=== PATIENT | male | born 1980 | race Caucasian/White ===

== ENCOUNTER 2024-11-18 12:51 | Emergency (ER) | payer BC, SELFPAY ==
[2024-11-18 12:56] VITALS: BP 177/102; PULSE 91; RESP 20; TEMP 36.7; O2SAT 97
--- NOTE | 2024-11-18 12:56 | ED_ITS ---
HPI - URI/Sore Throat General Chief Complaint: Upper Respiratory Infection Stated Complaint: cough/chest congestion Time Seen by Provider: 11/18/24 13:00 Source: patient, RN notes reviewed and old records reviewed Mode of arrival: ambulatory Limitations: no limitations History of Present Illness HPI Narrative: 44 year old male presents to express care with complaints of cough, chest congestion,noted wheezing sometimes at night when supine, nasal congestion and drainage,facial pressure for the past 2 weeks duration. Patient reports that he has been taking Mucinex DM, Theraflu cold and Flu, and Ibuprofen for his symptoms. Patient reports that he is expectorating yellow phlegm and also is blowing yellow mucous from his nose with sinus pressure. Patient reports no known fevers, chills, or sweats, or body aches. MD elicited complaint: cough, rhinorrhea and nasal congestion Pertinent past history: other (tobacco use) Onset (ago): week(s) (2) Consistency: constant Severity: moderate Description of mucous: yellow Able to tolerate fluids by mouth: Yes Treatments prior to arrival: other (Theraflu, Mucinex DM,Ibuprofen) Related Data Allergies Allergy/AdvReac Type Severity Reaction Status Date / Time No Known Allergies Allergy Unverified 11/18/24 13:02 Review of Systems Review of Systems: CONSTITUTIONAL: Reports malaise, no chills, sweats, or fever. EYES: Denies visual changes, redness, or discharge. ENT: Reports rhinorrhea, congestion, sinus pain,no otalgia and no sore throat. CARDIOVASCULAR: Denies chest pain, palpitations, or edema. RESPIRATORY: Reports cough and some wheezing at night when supine.? Denies dyspnea. GASTROINTESTINAL: Denies abdominal pain, nausea, vomiting, diarrhea SKIN: Denies rash or itching. MUSCULOSKELETAL: Denies myalgia. NEUROLOGIC: Denies headache. All systems reviewed & are unremarkable except as noted in HPI and below [facility] Social History Social History (Updated 11/18/24 @ 13:42 by Claudia Jaramillo NP) Smoking packs per day: 0.5 Smoking cigarettes per day: 10.0 Smoking status: Current every day smoker Tobacco type: cigarettes Alcohol intake: current Alcohol use details: social Substance use type: does not use Living arrangements: with family Gender identity (if verbalized by the patient): Male Comments At time of signature, agree with nursing past medical, surgical, social and family history. There is no relevant family history pertinent to the presenting complaint Exam Narrative: GENERAL: Well-appearing, well-nourished, and in no acute distress. HEAD: Normocephalic EYES: PERRLA, conjunctivae clear ENT: Nares clear, turbinates edematous and erythematous, yellow discharge facial sinus pressure. Mucous membranes moist. TM pearly nunez with dull light reflex bilaterally; no tragal tenderness. Oropharynx erythematous without lesions. Tonsils red mildly enlarged and without exudate, no drooling, no hoarseness, no trismus, uvula midline.post nasal drainage NECK: Supple. No lymphadenopathy CHEST: scattered wheezes upper anterior lobes to auscultation, breath sounds equal.+ wheezing,no rhonchi, rales, or stridor. No respiratory distress, speaks in full sentences cough productive of yellow phlegm SAO2 97% on room air. HEART: Regular rate and rhythm. No murmur heard. SKIN: Warm, dry, no rash. NEURO: Alert and oriented x3. PSYCH: Normal mood and affect Course Course Emergency Course: Patient is aware of diagnosis, understands and agrees to treatment plan.? Anticipatory guidance given.? Patient agrees to follow-up as directed and is aware of reasons to seek care at the emergency department. Portions of this record may have been created with voice recognition software Level of Care: Express Care Visit Vital Signs Vital signs: Vital Signs Temperature 36.7 C 11/18/24 12:56 Pulse Rate 91 11/18/24 12:56 Respiratory Rate 20 11/18/24 12:56 Blood Pressure 177/102 H 11/18/24 12:56 Pulse Oximetry 97 11/18/24 12:56 Oxygen Delivery Room Air 11/18/24 12:56 Temperature 36.7 C 11/18/24 12:56 Pulse Rate 91 11/18/24 12:56 Respiratory Rate 20 11/18/24 12:56 Blood Pressure 177/102 H 11/18/24 12:56 Pulse Oximetry 97 11/18/24 12:56 Oxygen Delivery Room Air 11/18/24 12:56 Reviewed MDM - URI/Sore Throat MDM Narrative Medical decision making narrative: Differential diagnosis considered: Pink virus, strep pharyngitis, allergic rhinitis, upper respiratory tract infection, sinusitis, rhinosinusitis, nasopharyngitis. viral pharyngitis, otitis media, otitis externa, pneumonia, bronchitis, viral cough syndrome, viral syndrome, and influenza.? Exam findings show no acute concerns or changes; patient is non-toxic appearing and is in no distress.? Patient is appropriate for outpatient treatment and follow-up. Differential Diagnosis Differential diagnosis: Likely upper respiratory infection, sinusitis, bronchitis and other (acute cough) Medical Records Attestation: I reviewed the patient's medical records. Lab Data Attestation: I reviewed the patient's lab results. Critical Care Time Critical Care Time Critical Care Time: No Discharge Plan Discharge Clinical Impression: Bronchitis Sinusitis Qualifiers: Sinusitis location: pansinusitis Chronicity: acute Recurrence: non-recurrent Qualified Code(s): J01.40 - Acute pansinusitis, unspecified Patient Disposition: Home, Self-Care Condition: Stable Instructions: Antibiotic Form, Acute Bronchitis (ED), Rhinosinusitis (ED) Additional Instructions: Increase fluids especially juices and water [id number] cough and cold medicine of your choice for your symptoms Recommend Delsym or Robitussin cough syrup Zyrtec,Claritin or Gertrudis daily and include Coricidin decongestant Mucinex continue as needed Continue your inhaler/nebulizer as directed Steroids as directed--take with food heat to the face 20-30 minutes 4-6 times a day for pain Salt water gargles, throat lozenges or throat sprays as desired Antibiotic as directed--finished the medication If your symptoms persist, change or worsen significantly before you can contact your personal physician then please, without delay, go to the emergency department for further evaluation. Follow-up with PCP in 7-10 days or sooner if needed Follow up with PCP soon in regards to your blood pressure which is elevated above threshold for referral. Blood pressure above 120/80 may indicate pre- hypertension. 177/102, blood pressure manual reading 160/100 Patient Language: Czech Prescriptions: New albuterol sulfate [Ventolin HFA] 90 mcg/actuation HFA aerosol inhaler 2 puff inhalation QID PRN (Reason: shortness of breath or wheezing) Qty: 8.5 0RF Rx Instructions: whatever is covered on insurance plan prednisone 20 mg tablet 40 mg PO DAILY 5 Days Qty: 10 0RF Rx Instructions: take with food amoxicillin-pot clavulanate 875-125 mg tablet 1 tablet PO Q12H Qty: 20 0RF Rx Instructions: take all doses recommend taking probiotic while taking this antibiotic or eating Activa yogurt Follow-up/Referrals: Dorothea,Kayden Cao MD [Primary Care Provider] - Stand Alone Forms: Work/School Release IP Time of Disposition: 13:19 Quality Katelynn Coma Scale Eyes: Open Verbal: Oriented and Alert Motor: Follows Commands Katelynn Coma Total Score: 15
--- OUTSIDE RECORDS SUMMARY | 2024-11-18 14:33 | XMS_ITS | Clinical Summary ---
Author Organization [facility] perial Address [address] [place] [address] Phone Care Team Providers Care Piano Refinisher Name Role Phone Unavailable Primary Care Provider Unavailabl e Allergies No known active allergies Medications betamethasone, augmented (DIPROLENE-AF) 0.05 % Ointment 6 Active albuterol HFA 90 mcg inhalerIndicati ons:URI, acute Take 2 Puffs by inhalation every 4 hours as needed for Shortness of Breath or Wheezing. 8.5 Gram 0 6 Active benzonatate (TESSALON) 200 mg capsuleIndicati ons:URI, acute Take 1 Capsule (200 mg) by mouth 3 times daily as needed for Cough. 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 Gender Identity Not on file Sexual Orientation Not on file Last Filed Vital Signs Vital Sign Reading Time Taken Comments Blood Pressure 137/83 11/03/2015 11:00 AM ARTIFICIAL INTELLIGENCE SPECIALIST Pulse 83 11/03/2015 11:00 AM ARTIFICIAL INTELLIGENCE SPECIALIST Temperature 36.7 C (98 F) 11/03/2015 11:00 AM ARTIFICIAL INTELLIGENCE SPECIALIST Respiratory Rate 20 11/03/2015 11:00 AM ARTIFICIAL INTELLIGENCE SPECIALIST Oxygen Saturation 94% 11/03/2015 11:00 AM ARTIFICIAL INTELLIGENCE SPECIALIST Inhaled Oxygen Concentration - - Weight 117.5 kg (259 lb) 11/03/2015 11:00 AM ARTIFICIAL INTELLIGENCE SPECIALIST Height 182.9 cm (6') 11/03/2015 11:00 AM ARTIFICIAL INTELLIGENCE SPECIALIST Body Mass Index 35.13 11/03/2015 11:00 AM ARTIFICIAL INTELLIGENCE SPECIALIST Plan of Treatment Health Maintenance Due Date Last Done Comments DTAP/TDAP/TD VACCINES (1 - Tdap) 1999 HEPATITIS B VACCINES (1 of 3 - 19+ 3-dose series) 1999 PNEUMOCOCCAL VACCINE 0-49 YE ARS (1 of 2 - PCV) 1999 INFLUENZA VACCINE (#1) 2024 HPV VACCINES Aged Out No longer eligi ble based on patient's age to complete this topic Insurance Patient Home Monitoring/TRUE [employer] PPO
--- OUTSIDE RECORDS SUMMARY | 2024-11-18 14:33 | XMS_ITS | Encounter Summary ---
Author Organization [facility] Address [address] [place] [address] Care Team Providers Care Rfid Developer Name Role Phone Unavailable Primary Care Provider Unavailabl e Encounter Details Date Type Department Care Team (Late st Contact Info) Description 03/30/2005 Outpatient Historical [facility] [address] [facility] [address] [place] [phone] Rahat Rodas MD [address] 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
--- OUTSIDE RECORDS SUMMARY | 2024-11-18 14:33 | XMS_ITS | Encounter Summary ---
Author Organization [facility] Address [address] [place] [address] Care Team Providers Care Barrel Plater Name Role Phone Unavailable Primary Care Provider Unavailabl e Encounter Details Date Type Department Care Team (Late st Contact Info) Description 04/08/2005 Outpatient Historical [facility] [address] [facility] [address] [facility] [place] [address] Kayden Solorzano MD [address] 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
--- OUTSIDE RECORDS SUMMARY | 2024-11-18 14:33 | XMS_ITS | Clinical Summary ---
Author Organization [facility] Address [address] [place] [address] Care Team Providers Care Automobile Locator Name Role Phone None, Provider MD Primary Care Provider Unavaila ble Allergies No known active allergies Immunizations Name Administration Dates Next Due Tdap (Boostrix) 07/28/2021 Social History Tobacco Use Types Packs/Day Years Used Date Smoking Tobacco: Every Day Cigarettes Smokeless Tobacco: Never Alcohol Use Standard Drinks/Week Comments Yes 0 (1 standard drink = 0.6 oz pur e alcohol) occasional Sex and Gender Information Value Date Recorded Sex Assigned at Not on file Legal Sex Male 8:09 PM CDT Gender Identity Not on file Sexual Orientation Not on file Last Filed Vital Signs Vital Sign Reading Time Taken Comments Blood Pressure 143/110 07/28/2021 11:30 AM BIKE ASSEMBLER Pulse 86 07/28/2021 11:30 AM BIKE ASSEMBLER Temperature 36.3 C (97.4 F) 07/28/2021 11:30 AM BIKE ASSEMBLER Respiratory Rate 18 07/28/2021 11:30 AM BIKE ASSEMBLER Oxygen Saturation 99% 07/28/2021 11:30 AM BIKE ASSEMBLER Inhaled Oxygen Concentration - - Weight 113.4 kg (250 lb) 07/28/2021 11:22 AM BIKE ASSEMBLER Height 182.9 cm (6') 07/28/2021 11:22 AM BIKE ASSEMBLER Body Mass Index 33.91 07/28/2021 11:22 AM BIKE ASSEMBLER Plan of Treatment Health Maintenance Due Date Last Done Comments Annual Physical 1983 Pneumococcal Vaccine: Pediatrics (0 to 5 Years) and At-Risk Patients (6 to 64 Years) (1 of 2 - PCV) 1986 Hepatitis B Vaccines (2 of 3 - 3-dose series) 08/08/1996 07/11/1996 Hepatitis C 1998 COVID-19 Vaccine ( season) 2024 07/08/2021 Influenza Adult (#1) 2024 06/01/2020, 06/11/20 19 DTaP, Tdap and Td Vaccines (7 - Td or Tdap) 07/28/2031 07/28/2021, 04/22/1994, 04/24/1985, Additional history exists HPV Vaccines Aged Out No longer eligi ble based on patient's age to complete this topic Meningococcal B Vaccine Aged Out No l onger eligible based on patient's age to complete this topic Meningococcal Vaccine Aged Out No katie jyothi eligible based on patient's age to complete this topic RSV Immunizations Under 20 Months Aged Out No longer eligible based on patient's age to complete this topic Insurance [employer] Care Teams Automobile Locator Relationship Specialty Start Date End Date None, Provider, PCP - General 07/28/21
--- OUTSIDE RECORDS SUMMARY | 2024-11-18 14:33 | XMS_ITS | Encounter Summary ---
Author Organization [facility] Address [address] [place] [address] Care Team Providers Care Electronics Scale Tester Name Role Phone Kayden Piedra MD Primary Care Provider [phone] Encounter Details Date Type Department Care Team (Late st Contact Info) Description 06/26/2020 Telephone [facility] [address] [place] [id number] Kayla Felix, RT Social History Tobacco Use Types Packs/Day Years Used Date Smoking Tobacco: Every Day Smokeless Tobacco: Never Alcohol Use Standard Drinks/Week Comments Yes 0 (1 standard drink = 0.6 oz pur e alcohol) Sex and Gender Information Value Date Recorded Sex Assigned at Not on file Legal Sex Male 5:11 AM IN PROCESS INSPECTOR Gender Identity Not on file Sexual Orientation Not on file 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
--- OUTSIDE RECORDS SUMMARY | 2024-11-18 14:33 | XMS_ITS | Clinical Summary ---
Author Organization [facility] Address [address] [place] [address] Phone Care Team Providers Care Project Leader Name Role Phone Kayden Piedra MD Primary Care Provider [phone] Allergies No known active allergies Medications triamcinolone (KENALOG) 0.1 % OintmentIndicat ions:Dermatitis Application Site: rash BID (Description and Location) 80 g 3 0 Active Additional Information Patient not taking.Reported on 04/30/2024 HYDROcodone-therese taminophen (NORCO) 5-325 MG Tablet Take 1 Tab by mouth every 4 hours as needed for Moderate or more severe pain. 20 Tab 0 Active Additional Information Patient not taking.Reported on 04/30/2024 albuterol 108 (90 Base) MCG/ACT Aerosol Solution take 1-2 Puffs by inhalation every 4 hours as needed for Cough. 18 g 4 Active fluticasone (FLONASE) 50 MCG/ACT Suspension 1 Temple by Nasal route daily. Use in each nostril as directed. 16 g 1 4 Active naproxen (NAPROSYN) 500 MG Tablet Take 1 Tablet by mouth 2 times daily as needed for Mild or more severe pain. 20 Tablet 4 Active Active Problems Problem Noted Date Diagnosed Date COVID-19 04/30/2024 Immunizations Immunization Administration Dates Next Due DTP Vaccine 04/24/1985, 2,1980,1980,1980 Hepatitis B Vaccine, Pediatric/adolescent 07/11/1996 Influenza Vaccine 06/11/2019 Influenza Vaccine greater than 3 yrs 06/01/2020 Influenza Vaccine, Quadrivalent, PF 06/16/2020 MMR Vaccine 04/13/1990,10/19/1981 OPV 04/24/1985, 2,08/17/1981,1980,1980 TD VACCINE 04/22/1994 TDAP Vaccine 07/28/2021 Family History Medical History Relation Name Comments No Known Problems Brother No Known Problems Father No Known Problems Maternal Grandfather Aneurysm Maternal Grandmother Diabetes Mother Heart Attack Mother Hypertension Mother No Known Problems Paternal Grandfather No Known Problems Paternal Grandmother Relation Name Status Comments Brother Alive Father Alive Maternal Grandfather Alive Maternal Grandmother Mother Paternal Grandfather Paternal Grandmother Social History Tobacco Use Types Packs/Day Years Used Date Smoking Tobacco: Every Day Smokeless Tobacco: Former Chew Tobacco Cessation:Ready to Q uit: No; Counseling Given: Yes Alcohol Use Standard Drinks/Week Comments Yes 0 (1 standard drink = 0.6 oz pur e alcohol) Social [employer] Answer Date Recorded In the past 12 months has [employer] gas, oil, or [employer] threatened to shut off services in your home? No 08/12/2024 Social Connection and Isolat ion Panel [NHANES] Answer Date Recorded In a typical week, how many times do you talk on the phone with family, friends, or neighbors? Once a week 08/12/2024 How often do you get togethe r with friends or relatives? Once a week 08/12/2024 How often do you attend memorial healthcare or mu-ism services? Never 08/12/2024 Do you belong to any clubs o r organizations such as pentecostal groups, unions, fraternal or athletic groups, or school groups? Yes 08/12/2024 How often do you attend meet ings of the clubs or organizations you belong to? More than 4 times per year 08/12/2024 Are you , , di vorced, , never , or living with a partner? Living with partner 08/12/2024 AUDIT-C Answer Date Recorded Q1: How often do you have a drink containing alc ohol? 2-4 times a month 08/12/2024 Q2: How many drinks containi ng alcohol do you have on a typical day when you are drinking? 5 or 6 08/12/2024 Q3: How often do you have si x or more drinks on one occasion? Monthly 08/12/2024 Overall Financial Resource Strain (CARDIA) Answe r Date Recorded How hard is it for you to pa y for the very basics like food, housing, medical care, and heating? Not very hard 08/12/2024 PHQ-2 Answer Date Recorded Total Score - Questions 1-9 0 09/0 10/2023 [facility] - Occupational Stress Questionnaire Answer Date Recorded Do you feel stress - tense, restless, nervous, or anxious, or unable to sleep at night because your mind is troubled all the time - these days? Only a little 08/12/2024 Exercise Vital Sign Answer Date Recorde d On average, how many days pe r week do you engage in moderate to strenuous exercise (like a brisk walk)? 5 days 08/12/2024 On average, how many minutes do you engage in exercise at this level? 30 min 08/12/2024 Hunger Vital Sign Answer Date Recorded Within the past 12 months, y ou worried that your food would run out before you got the money to buy more. Never true 08/12/20 24 Within the past 12 months, t he food you bought just didn't last and you didn't have money to get more. Never true 08/12/2024 PRAPARE - Transportation Answer Date Re corded In the past 12 months, has l ack of transportation kept you from medical appointments or from getting medications? No 07/28 In the past 12 months, has l ack of transportation kept you from meetings, work, or from getting things needed for daily living? No 08/12/2024 Housing Stability Vital Sign Answer Boby e Recorded In the last 12 months, was t here a time when you were not able to pay the mortgage or rent on time? No 08/12/2024 In the past 12 months, how m any times have you moved where you were living? 0 08/12/2024 At any time in the past 12 m [facility], were you homeless or living in a longterm (including now)? No 08/12/2024 Sexually Active Control Partners Comments Yes I.U.D. 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 Not on file Not on file Last Filed Vital Signs Vital Sign Reading Time Taken Comments Blood Pressure 147/95 08/12/2024 11:26 AM AREA DIRECTOR Pulse 75 08/12/2024 11:26 AM AREA DIRECTOR Temperature 36.6 C (97.9 F) 08/12/2024 10:05 AM AREA DIRECTOR Respiratory Rate 17 08/12/2024 11:26 AM AREA DIRECTOR Oxygen Saturation 99% 08/12/2024 11:26 AM AREA DIRECTOR Inhaled Oxygen Concentration - - Weight 111.6 kg (246 lb) 08/12/2024 10:05 AM AREA DIRECTOR Height 182.9 cm (6') 08/12/2024 10:05 AM AREA DIRECTOR Body Mass Index 33.36 08/12/2024 10:05 AM AREA DIRECTOR Plan of Treatment Upcoming Encounters Date Type Department Care Team (Late st Contact Info) Description 11/19/2024 9:30 AM CDT Office Visit [facility] [address] [place] [address] Kayden Piedra MD [address] [address] Health Maintenance Due Date Last Done Comments Hepatitis C Virus (HCV) Screening 1980 Hepatitis B Immunization (2 of 3 - 3-dose series) 08/08/1996 07/11/1996 Pneumococcal Immunization Combined (1 of 2 - PCV) 1999 Influenza Immunization (#1) 04/28/202405/29, 06/01/2020, 06/11/2019 SARS-COV-2 Immunization ( - season) 2024 07/29/2021, 07/08/2021 DTaP/Tdap/Td Immunization (7 - Td or Tdap) 07/28/2031 07/28/2021, 04/22/1994, 04/24/1985, Additional history exists Td Immunization Every 10 Years (Adults With 1 Tdap) 07/28/2031 07/28/2021, 04/22/1994 Respiratory Syncytial Virus (RSV) Immunization (Adult) (1 - 1-dose 75+ series) 2055 Meningococcal Immunization (ACWY) Aged Out No longer eligible based on patient's age to complete this topic Rotavirus Immunization Aged Out No lo nger eligible based on patient's age to complete this topic Insurance [facility] Care Teams Project Leader Relationship Specialty Start Date End Date Kayden Piedra MD [address] [address] PCP - General Family Medicine 09/10/19
--- OUTSIDE RECORDS SUMMARY | 2024-11-18 14:33 | XMS_ITS | Encounter Summary ---
Author Organization [facility] Address [address] [place] [address] Care Team Providers Care Hatchery Helper Name Role Phone Unavailable Primary Care Provider Unavailabl e Encounter Details Date Type Department Care Team (Late st Contact Info) Description 03/23/2005 Outpatient Historical [facility] ([facility] [id number] [facility] [address] [place] [id number] Rahat Rodas MD [address] 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
--- OUTSIDE RECORDS SUMMARY | 2024-11-18 14:33 | XMS_ITS | Referral Summary ---
Author Organization [facility] Medical Office Building [address] Address [address] [place] [address] Care Team Providers Care Hearing And Speech Assistant Name Role Phone Kayden Piedra MD Primary Care Provider [phone] Allergies No known active allergies Medications HYDROcodone-therese taminophen (NORCO) 5-325 mg per tabletIndicatio ns:Pain Take 1 tablet by mouth every 6 (six) hours as needed for pain for up to 1 dose 1 tablet 11/01/2023 Active lidocaine (LIDODERM) 5 % Place 1 patch on the skin daily for 14 days Remove & discard patch within 12 hours or as directed by MD. 14 patch 11/01/2023 Active methocarbamoL (ROBAXIN) 500 mg tablet Take 1 tablet (500 mg total) by mouth 2 (two) times a day 20 tablet 11/01/2023 Active naproxen (NAPROSYN) 500 mg tablet Take 1 tablet (500 mg total) by mouth 2 (two) times a day with meals 30 tablet 11/01/2023 Active Active Problems Problem Noted Date Diagnosed Date NELY (acute kidney injury) 03/18/2022 Assessment & Plan (03/18/2022 2:40 PM CDT): Secondary to rhabdomyolysis, and possibly pre-renal component as well given dehydration Cr 1.98 on presentation, currently improved to 1.54 with iv fluids Will continue IVF, monitor BMP, avoid nephrotoxic agents. Cigarette smoker 03/18/2022 Assessment & Plan (03/18/2022 2:41 PM CDT): Pt smokes everyday, 5-6 cigarettes. Discussed harmful effects of smoking including COPD and lung cancer, and advised to quit. Non-traumatic rhabdomyolysis 03/17/2022 Assessment & Plan (03/18/2022 2:38 PM CDT): Secondary to physical exertion in the sun Presented with CK 2900, currently improved to 2600 Continue IVF NS @ 125 cc/hr Monitor CK levels Arthralgia of shoulder 11/04/2014 Sprain of shoulder 09/25/2014 Immunizations Immunization Administration Dates Next Due Pfizer SARS-CoV-2 Monovalent Vaccination (12+ Yrs) PURPLE 07/29/2021,07/08/2021 Social History Tobacco Use Types Packs/Day Years Used Date Smoking Tobacco: Every Day Smokeless Tobacco: Never Alcohol Use Standard Drinks/Week Comments Yes 0 (1 standard drink = 0.6 oz pur e alcohol) PHQ-2 Answer Date Recorded PHQ-2 Total Score (If total score is 3 or more points, staff should administer the PHQ-9) 0 03/18/2022 Personal Safety Answer Date Recorded Have you ever been in or are you currently in a harmful physical or emotional relationship or is someone making you feel afraid or unsafe? 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 Not on file Not on file Not on file Last Filed Vital Signs Vital Sign Reading Time Taken Comments Blood Pressure 155/90 11/01/2023 5:05 PM BREAD PACKER Pulse 89 11/01/2023 5:05 PM BREAD PACKER Temperature 36.4 C (97.5 F) 11/01/2023 5:05 PM BREAD PACKER Respiratory Rate 18 11/01/2023 5:05 PM BREAD PACKER Oxygen Saturation 100% 11/01/2023 5:05 PM BREAD PACKER Inhaled Oxygen Concentration - - Weight 115.7 kg (255 lb) 11/01/2023 4:31 PM BREAD PACKER Height 182.9 cm (6') 11/01/2023 4:31 PM BREAD PACKER Body Mass Index 34.58 11/01/2023 4:31 PM BREAD PACKER Plan of Treatment Not on file Insurance [facility] [place] [id number] [facility] Advance Directives For more information, please contact: [phone] * Full Code (Latest Code Status on File) Date Activated Date Inactivated Comments 03/18/2022 12:19 AM 03/19/2022 3:03 PM Care Teams Hearing And Speech Assistant Relationship Specialty Start Date End Date Kayden Piedra MD [address] [facility] [address] [address] PCP - General Family Medicine 05/27/20
--- OUTSIDE RECORDS SUMMARY | 2024-11-18 14:33 | XMS_ITS | Clinical Summary ---
Author Organization [facility] Medical Office Building [address] Address [address] [place] [address] Care Team Providers Care Job Trainer Name Role Phone Kayden Piedra MD Primary Care Provider [phone] Allergies No known active allergies Medications HYDROcodone-therese [...] SARS-CoV-2 Monovalent Vaccination (12+ Yrs) PURPLE 07/29/2021,07/08/2021 Surgical History Surgery Date Site/Laterality Comments SHOULDER SURGERY HAND SURGERY Family History Medical History Relation Name Comments Heart disease Other Relation Name Status Comments Other Social History Tobacco Use Types Packs/Day Years [...] on file Legal Sex Male 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 STAMP ANALYST Gender Identity Not on file Sexual Orientation Not on file 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 Not on file Not on file Obstetrics History Last Filed Vital Signs Vital Sign Reading Time Taken Comments Blood Pressure 155/90 11/01/2023 5:05 PM STAMP ANALYST Pulse 89 11/01/2023 5:05 PM STAMP ANALYST Temperature 36.4 C (97.5 F) 11/01/2023 5:05 PM STAMP ANALYST Respiratory Rate 18 11/01/2023 5:05 PM STAMP ANALYST Oxygen Saturation 100% 11/01/2023 5:05 PM STAMP ANALYST Inhaled Oxygen Concentration - - Weight 115.7 kg (255 lb) 11/01/2023 4:31 PM STAMP ANALYST Height 182.9 cm (6') 11/01/2023 4:31 PM STAMP ANALYST Body Mass Index 34.58 11/01/2023 4:31 PM STAMP ANALYST Plan of Treatment Health Maintenance Due Date Last Done Comments Hepatitis C Screening 1980 Varicella Vaccines (1 of 2 - 13+ 2-dose series) 1993 Regular Well Visit/Exam 18-64 1998 Pneumococcal vaccine <65 (1 of 2 - PCV) 1999 Depression Screening 03/17/2023 03/17/2022 Covid-19 Vaccine (3 - 2023- season) 2024 07/29/2021, 07/08/2021 Influenza Vaccine (#1) 2024 , 06/01/2020, 06/11/2019 DTaP/Tdap/Td Vaccine (7 - Td or Tdap) 07/28/2031 07/28/2021, 04/22/1994, 04/24/1985, Additional history exists Hepatitis B Screening Completed 07/11/1996 HPV Vaccines Aged Out No longer eligi ble based on patient's age to complete this topic Insurance [facility] Advance Directives For more information, please contact: [phone] * Full Code (Latest Code Status on File) Date Activated Date Inactivated Comments 03/18/2022 12:19 AM 03/19/2022 3:03 PM Care Teams Job Trainer Relationship Specialty Start Date End Date Kayden Piedra MD [address] [address] PCP - General Family Medicine 05/27/20
== END 2024-11-18 13:25 | disposition home or self-care (01) ==
PROVIDERS: Emergency Provider Registered Nurse; PCP Internal Medicine
DX: J40 Bronchitis, not specified as acute or chronic (principal); J01.40 Acute pansinusitis, unspecified; F17.210 Nicotine dependence, cigarettes, uncomplicated
CPT/HCPCS: 99203; G0463